=== PATIENT | female | born 1960 | race American Indian/Alaskan Native ===

== ENCOUNTER 2018-02-13 12:40 | Emergency (ER) | payer MEDICAID ==
[2018-02-13 12:54] VITALS: BP 117/84
--- NOTE | 2018-02-13 15:40 | Emergency Department Report ---
ED General Adult HPI - General Chief complaint: Back Pain/Injury Stated complaint: POSS FLU/VIRAL BUG Time Seen by Provider: 02/13/18 15:01 Source: patient Mode of arrival: Ambulatory Limitations: No Limitations - History of Present Illness Initial comments: 57-year-old female 10 days ago donated some plasma felt like it was a clean facility that did good sterile prep with fresh needles however is not sure she came down with something, she's been having some type of body aches off and on ever since now it's into her back, she does relate that she did eat something at the buffet the next day which may have started it because she felt ill after that she denies any nausea or diarrhea no fever no black or bloody stool no stiff neck, no recent travel, no tick bites or mosquito bites no other exposures , no rash -: Gradual, days(s) Associated Symptoms: malaise, weakness. denies: headaches, loss of appetite, rash, seizure, shortness of breath, syncope - Related Data Home Medications Medication Instructions Recorded Confirmed Last Taken Omeprazole [Prilosec] 40 mg PO BID 05/18/14 05/18/14 Unknown levETIRAcetam [Keppra] 750 mg PO BID 05/18/14 05/18/14 Unknown Allergies Allergy/AdvReac Type Severity Reaction Status Date / Time No Known Allergies Allergy Verified 02/13/18 12:49 ED Review of Systems ROS: Stated complaint: POSS FLU/VIRAL BUG Other details as noted in HPI Comment: All other systems reviewed and negative Constitutional: malaise. denies: fever Eyes: denies: eye discharge, vision change ENT: denies: dental pain, hearing loss, epistaxis Respiratory: denies: shortness of breath, SOB with exertion, SOB at rest, stridor Cardiovascular: denies: chest pain, palpitations, dyspnea on exertion, orthopnea , edema, syncope, paroxysmal nocturnal dyspnea Gastrointestinal: denies: nausea, vomiting, diarrhea, constipation, hematemesis , melena, hematochezia Musculoskeletal: denies: joint swelling, arthralgia Neurological: denies: headache, weakness, numbness, paresthesias, confusion, abnormal gait, vertigo Psychiatric: denies: auditory hallucinations, visual hallucinations, homicidal thoughts, suicidal thoughts ED Past Medical Hx - Past Medical History Hx GERD: Yes Hx Seizures: Yes - Surgical History Hx Open Heart Surgery: Yes Hx Appendectomy: Yes Additional Surgical History: Gastric bypass, tonsillectomy, , tubal ligation - Social History Smoking Status: Never Smoker Substance Use Type: None - Medications Home Medications: Home Medications Medication Instructions Recorded Confirmed Last Taken Type Omeprazole [Prilosec] 40 mg PO BID 05/18/14 05/18/14 Unknown History levETIRAcetam [Keppra] 750 mg PO BID 05/18/14 05/18/14 Unknown History ED Physical Exam - General Limitations: No Limitations General appearance: alert, in no apparent distress, anxious - Head Head exam: Present: atraumatic, normocephalic - Eye Eye exam: Present: PERRL, EOMI - ENT ENT exam: Present: normal exam, normal orophraynx - Neck Neck exam: Present: normal inspection. Absent: meningismus - Respiratory Respiratory exam: Present: normal lung sounds bilaterally. Absent: respiratory distress, wheezes, rales, rhonchi, stridor, chest wall tenderness, accessory muscle use, decreased breath sounds, prolonged expiratory - Cardiovascular Cardiovascular Exam: Present: regular rate, normal rhythm. Absent: bradycardia , tachycardia, irregular rhythm, normal heart sounds, systolic murmur, diastolic murmur, rubs, gallop - GI/Abdominal GI/Abdominal exam: Present: soft. Absent: distended, tenderness, guarding, rebound, rigid, mass, pulsatile mass - Extremities Exam Extremities exam: Present: normal inspection, normal capillary refill, other (6 site looks clean and dry. No lymphangitis no warmth or erythema no compartment syndrome). Absent: pedal edema, joint swelling - Back Exam Back exam: Present: normal inspection. Absent: CVA tenderness (L), muscle spasm , paraspinal tenderness, vertebral tenderness - Neurological Exam Neurological exam: Present: alert, oriented X3, CN II-XII intact, normal gait. Absent: motor sensory deficit - Psychiatric Psychiatric exam: Present: anxious. Absent: homicidal ideation, suicidal ideation ED Course Vital Signs 02/13/18 12:50 Temperature 98.4 F Pulse Rate 95 H Respiratory 18 Rate Blood Pressure 117/84 O2 Sat by Pulse 96 Oximetry ED Medical Decision Making - Medical Decision Making Patient with vague malaise she's not sure if it's related to giving plasma or from something she ate all of this is gone on for about 7-10 days, I did suggest to her that we will get a urine test and a battery of some blood work just to evaluate for leukocytosis left shift and possible infection she is refusing this at this time, unclear what the etiology is and she is refusing further evaluation she is nontoxic alert and oriented 3 no process she is not intoxicated and does have capacity she is refusing further evaluation at this time Critical care attestation.: If time is entered above; I have spent that time in minutes in the direct care of this critically ill patient, excluding procedure time. ED Disposition Clinical Impression: Malaise Disposition: [id number] LEFT AGAINST MED ADVICE Is pt being admited?: No Condition: Stable Instructions: Needle Stick Injuries (ED), Weakness (ED) Additional Instructions: Return if new alarming symptoms or see their doctor listed Referrals: PRIMARY CARE, [Primary Care Provider] - 3-5 Days Forms: AMA Form Time of Disposition: 15:50
== END 2018-02-13 15:49 | disposition left against medical advice (07) ==
LOC: ED 12:40
DX: R53.83 Other fatigue (principal); K21.9 Gastro-esophageal reflux disease without esophagitis; Z90.49 Acquired absence of other specified parts of digestive tract; Z90.89 Acquired absence of other organs; Z98.51 Tubal ligation status
CPT/HCPCS: 99282

== ENCOUNTER 2019-06-23 15:11 | Emergency (ER) | payer SELFPAY ==
[2019-06-23 15:24] VITALS: BP 119/79
--- NOTE | 2019-06-23 15:40 | Emergency Department Report ---
ED Back Pain/Injury HPI - General Chief Complaint: Back Pain/Injury Stated Complaint: BI SHOULDER/NECK PAIN Time Seen by Provider: 06/23/19 15:33 Source: patient Limitations: No Limitations - History of Present Illness Initial Comments: This is a 58-year-old female nontoxic, well nourished in appearance, no acute signs of distress presents to the ED with c/o of intermittent upper back pain x1 month. Patient denies any trauma. Denies any bladder or bowel instability. Patient denies any urinary symptoms. Denies any fever, chills, nausea, vomiting, headache, stiff neck, chest pain or shortness of breath. Patient denies any numbness or tingling. Denies any allergies. MD Complaint: back pain Similar Symptoms Previously: Yes Radiation: none Severity: mild Severity scale (0 -10): 8 Quality: aching Consistency: intermittent Improves With: immobilization, sitting upright Worsens With: movement, walking Associated Symptoms: denies other symptoms. denies: confusion, weakness, chest pain, numbness, difficulty walking, cough, difficulty urinating, diaphoresis, incontinence, fever/chills, constipation, headaches, abdominal pain, loss of appetite, malaise, nausea/vomiting, rash, seizure, shortness of breath, syncope - Related Data Home Medications Medication Instructions Recorded Confirmed Last Taken Omeprazole [Prilosec] 40 mg PO BID 05/18/14 05/18/14 Unknown levETIRAcetam [Keppra] 750 mg PO BID 05/18/14 05/18/14 Unknown Previous Rx's Medication Instructions Recorded Last Taken Type Cyclobenzaprine [Flexeril] 10 mg PO QHS PRN #10 tablet 06/23/19 Unknown Rx Naproxen 500 mg PO Q8H PRN #20 tablet 06/23/19 Unknown Rx Allergies Allergy/AdvReac Type Severity Reaction Status Date / Time No Known Allergies Allergy Verified 02/13/18 12:49 ED Review of Systems ROS: Stated complaint: BI SHOULDER/NECK PAIN Other details as noted in HPI Constitutional: denies: chills, fever Eyes: denies: eye pain, eye discharge, vision change ENT: denies: ear pain, throat pain Respiratory: denies: cough, shortness of breath, wheezing Cardiovascular: denies: chest pain, palpitations Endocrine: no symptoms reported Gastrointestinal: denies: abdominal pain, nausea, diarrhea Genitourinary: denies: urgency, dysuria, discharge Musculoskeletal: back pain. denies: joint swelling, arthralgia Skin: denies: rash, lesions Neurological: denies: headache, weakness, paresthesias Psychiatric: denies: anxiety, depression Hematological/Lymphatic: denies: easy bleeding, easy bruising ED Past Medical Hx - Past Medical History Hx GERD: Yes Hx Seizures: Yes - Surgical History Hx Open Heart Surgery: Yes Hx Appendectomy: Yes Additional Surgical History: Gastric bypass, tonsillectomy, , tubal ligation - Social History Smoking Status: Never Smoker - Medications Home Medications: Home Medications Medication Instructions Recorded Confirmed Last Taken Type Omeprazole [Prilosec] 40 mg PO BID 05/18/14 05/18/14 Unknown History levETIRAcetam [Keppra] 750 mg PO BID 05/18/14 05/18/14 Unknown History Cyclobenzaprine [Flexeril] 10 mg PO QHS PRN #10 tablet 06/23/19 Unknown Rx Naproxen 500 mg PO Q8H PRN #20 tablet 06/23/19 Unknown Rx ED Physical Exam - General Limitations: No Limitations General appearance: alert, in no apparent distress - Head Head exam: Present: atraumatic, normocephalic - Neck Neck exam: Present: normal inspection, full ROM. Absent: tenderness, meningismus, lymphadenopathy - Respiratory Respiratory exam: Present: normal lung sounds bilaterally. Absent: respiratory distress, wheezes, rales, rhonchi, stridor, chest wall tenderness, accessory muscle use, decreased breath sounds, prolonged expiratory - Cardiovascular Cardiovascular Exam: Present: regular rate, normal rhythm, normal heart sounds. Absent: irregular rhythm, systolic murmur, diastolic murmur, rubs, gallop - Extremities Exam Extremities exam: Present: normal inspection, full ROM - Back Exam Back exam: Present: normal inspection, full ROM, paraspinal tenderness (cervical paraspinal area). Absent: tenderness, CVA tenderness (R), CVA tenderness (L), muscle spasm, vertebral tenderness, rash noted - Neurological Exam Neurological exam: Present: alert, oriented X3, normal gait - Psychiatric Psychiatric exam: Present: normal affect, normal mood - Skin Skin exam: Present: warm, dry, intact, normal color. Absent: rash ED Course Vital Signs 06/23/19 15:22 Temperature 97.6 F Pulse Rate 96 H Respiratory 18 Rate Blood Pressure 119/79 O2 Sat by Pulse 97 Oximetry - Reevaluation(s) Reevaluation #1: 06/23/19 15:40 Patient is speaking in full sentences with no signs of distress noted. ED Medical Decision Making - Medical Decision Making This is a 58-year-old female that presents with upper back strain. Patient is stable was examined by me. There is no spinal tenderness. There is no cauda equina syndrome during examination. No bladder or bowel instability. Patient is discharged with muscle relaxant and NSAID. Patient was instructed not to operate any machinery while taking muscle relaxant as they cause her drowsiness. Patient was referred to Follow-up with a primary care doctor in 3-5 days or if symptoms worsen and continue return to emergency room as soon as possible. At time of discharge, the patient does not seem toxic or ill in appearance. No acute signs of distress noted. Patient agrees to discharge treatment plan of care. No further questions noted by the patient. Critical care attestation.: If time is entered above; I have spent that time in minutes in the direct care of this critically ill patient, excluding procedure time. ED Disposition Clinical Impression: Cervical muscle strain Qualifiers: Encounter type: initial encounter Qualified Code(s): S16.1XXA - Strain of muscle, fascia and tendon at neck level, initial encounter Disposition: - TO HOME OR SELFCARE Is pt being admited?: No Does the pt Need Aspirin: No Condition: Stable Instructions: Muscle Strain (ED), Cyclobenzaprine (By mouth) Additional Instructions: Follow-up with a primary care doctor in 3-5 days or if symptoms worsen and continue return to emergency room as soon as possible. Prescriptions: Cyclobenzaprine [Flexeril] 10 mg PO QHS PRN #10 tablet PRN Reason: Muscle Spasm Naproxen 500 mg PO Q8H PRN #20 tablet PRN Reason: Pain, Moderate (4-6) Referrals: PRIMARY CAREMD [Referring] - 3-5 Days ABBE SMITH MD [Staff Physician] - 3-5 Days [facility] [Outside] - 3-5 Days [facility] [Outside] - 3-5 Days Forms: Work/School Release Form(ED)
== END 2019-06-23 15:48 | disposition home or self-care (01) ==
LOC: ED 15:11
DX: S16.1XXA Strain of muscle, fascia and tendon at neck level, initial encounter (principal); K21.9 Gastro-esophageal reflux disease without esophagitis; X58.XXXA Exposure to other specified factors, initial encounter; Y93.89 Activity, other specified; Y92.89 Other specified places as the place of occurrence of the external cause; Y99.8 Other external cause status
CPT/HCPCS: 99282